=== PATIENT | male | born 1955 | race Caucasian/White ===

== ENCOUNTER 2019-05-24 08:46 | Outpatient (CLI) | payer BC, SELFPAY ==
[2019-05-24 08:56] LABS: Basophils Absolute Auto 0.03 K/mm3 (0.00-0.10); Basophils Percent Auto 0.7 % (0.0-1.0); Eosinophils Absolute Auto 0.11 K/mm3 (0.02-0.50); Eosinophils Percent Auto 2.6 % (1.0-6.0); Immature Granulocyte Absolute 0.04 K/mm3 (0.00-0.00); Lymphocytes Absolute Auto 1.31 K/mm3 (1.10-4.50); Lymphocytes Percent Auto 31.5 % (18.0-42.0); Mean Corpuscular HGB Conc 31.6 g/dL (32.0-36.0); Mean Corpuscular Hemoglobin 28.1 pg (27.0-31.0); Mean Platelet Volume 10.2 fl (8.7-11.0); Monocytes Absolute Auto 0.51 K/mm3 (0.10-0.90); Monocytes Percent Auto 12.3 % (2.0-11.0); Neutrophils Absolute Auto 2.2 K/mm3 (1.7-7.2); Neutrophils Percent Auto 51.9 % (50.0-70.0); Platelet Count Result 195 K/mm3 (150-420); Red Blood Count 4.27 M/mm3 (4.70-6.10); Red Cell Distribution Width 19.9 % (11.6-14.4); White Blood Count 4.2 K/mm3 (4.8-10.8)
[2019-05-24 09:55] LABS: Alanine Aminotransferase 17 U/L (16-63); Albumin Level 2.3 g/dL (3.4-5.0); Alkaline Phosphatase 304 U/L (46-116); Anion Gap 15.8 mmol/L (7-16); Aspartate Amino Transferase 37 U/L (15-37); Bilirubin,Total 0.6 mg/dL (0.00-1.00); Blood Urea Nitrogen 28 mg/dL (7-18); Calcium 8.3 mg/dL (8.5-10.1); Carbon Dioxide 23 mmol/L (21-32); Chloride 106 mmol/L (98-108); Estimated Glomerular Filt Rate 54; Glucose 91 mg/dL (70-99); Osmolality Calculated 295 mOsm/kg (285-295); Potassium 4.8 mmol/L (3.5-5.1); Sodium 140 mmol/L (136-145); Total Protein 6.1 g/dL (6.4-8.2)
== END 2019-05-24 08:47 | disposition home or self-care (01) ==
LOC: CHSLAB 08:49
PROVIDERS: PCP Family Medicine; Visit Provider Internal Medicine Hematology & Oncology
DX: C24.1 Malignant neoplasm of ampulla of Vater (principal)
CPT/HCPCS: 36415; 80053; 85025

== ENCOUNTER 2019-05-29 05:34 | Emergency (ER) | payer BC, SELFPAY ==
--- NOTE | ~2019-05-29 | CT_ITS ---
EXAMINATION: CTA chest PE abdomen pel DATE: 05/29/2019 08:24 CDT INDICATION: Metastatic pancreatic cancer TECHNIQUE: Computed tomographic angiography (CTA) of the chest was performed with 100 mL Omnipaque-35 0 intravenous contrast. The dose-length product was 746.76 mGy-cm. Maximum intensity projection 3D-re constructions of the aorta and other arteries were constructed by the technologist on a separate work station. Automated exposure control and iterative reconstruction technique were employed. COMPARISON: CT dated 05/10/2018 FINDINGS: Study is technically adequate without evidence for pulmonary embolism. Large right and mode rate left pleural effusions. Cardiomegaly. No significant pericardial effusion. There is dependent at electasis. There is a 2.2 cm right upper lobe mass. There is a 2.3 cm left suprahilar mass. There are small 3 mm) fissural nodules. There is a 6 mm right pleural-based mass of the lower lobe. There is a 4 mm right fissural nodule, image 74. There is an 8 mm pleural-based lingular nodule, image 70. Ther e are multiple low-density lesions in the thyroid gland, nonspecific. Recommend correlation with ultr asound on a nonemergent basis. There is a left chest wall port. There are multiple hypovascular lesions of the liver, compatible with metastases. There is ascites in the upper abdomen. The pancreas is not visualized. IMPRESSION: 1. No evidence for pulmonary embolism. 2: Multiple bilateral pulmonary nodules, largest in the upper lobes measuring up to 2.3 cm, compatib le with metastases. There are additional metastases to the liver. 3: Bilateral pleural effusions, right greater than left, and ascites. 4: Cardiomegaly. Reviewed, dictated and finalized at location A. IMPRESSION: 1. No evidence for pulmonary embolism. 2: Multiple bilateral pulmonary nodules, largest in the upper lobes measuring up to 2.3 cm, compatible with metastases. There are additional metastases to th e liver. 3: Bilateral pleural effusions, right greater than left, and ascites. 4: Cardiomegaly.
[2019-05-29 05:35] VITALS: BP 156/94; PULSE 95; RESP 20; TEMP 37.1; O2SAT 98
--- NOTE | 2019-05-29 06:18 | ED.WEAKNESS ---
HPI - Weakness General Chief complaint: Weakness Stated complaint: WEAKNESS Time Seen by Provider: 05/29/19 05:55 Source: patient Mode of arrival: EMS Limitations: clinical condition History of Present Illness HPI Narrative: Montrell is a 63-year-old male patient. He presents to the emergency room from home by ambulance. Montrell lives at home with his brother and mother. His main complaint upon admission his weakness and history of fall at around 5:00 a.m. today. He was going from his bed to the commode which was by the bedside. He felt weak and slid down to the floor. He was unable to get up. His the mother and brother also were unable to get him up. They called the ambulance and he is here with weakness mainly. As far as pain is concerned he just has minor pain to the low back. He is able to flex and extend both knees and both hips. There is no open wound anywhere. He rates the pain only at about 2/10. As noted above, his main complaint is weakness. Montrell has a diagnosis of pancreatic cancer. This diagnosis was 1st made in April 2018. He had a Whipple procedure done at [facility] in [facility] in May of 2018. Chemotherapy was started in July 2018. His main oncologist is Dr.Preet Elizalde. Montrell sees Dr. Elizalde in [place]. His last visit with Dr. Elizalde was last week. He gets the chemotherapy every 2 weeks, occasionally it is extended to 3 weeks, depending on his blood counts. he has also seen another oncologist at [facility]. This is Dr. Hi Elizalde and Dr. Do have conferred with each other. Montrell was diagnosed with liver and lymph node metastasis in November of 2018. His chemo regimen was changed since then. Montrell denies any abdominal pain. He denies any vomiting or diarrhea. His appetite has been fair to poor. Denies any urinary symptoms. No history of cough or fever. He has some swelling to the abdomen feet and lower legs . However he does not have any pain to these areas. Montrell denies any chest pain. He denies any shortness of breath at this time. There is no history of cough or fever. MD Complaint: generalized weakness Onset (ago): week(s) ( Past 1 week the weakness has gradually increased) Duration: constant Location: generalized Exacerbating factors: other ( see HPI narrative) Context: other ( see HPI narrative) Associated symptoms: other ( see HPI narrative) Related Data Home Medications Medication Instructions Recorded Confirmed diphenoxylate-atropine 1 tablet PO DIRECTED PRN 05/29/19 05/29/19 furosemide 40 mg PO DAILY 05/29/19 05/29/19 hydrocodone-acetaminophen 1 tablet PO Q6-8H PRN 05/29/19 05/29/19 morphine 15 mg PO BID 05/29/19 05/29/19 olanzapine 5 mg PO BID 05/29/19 05/29/19 ondansetron HCl 8 mg PO Q6-8H PRN 05/29/19 05/29/19 tramadol 50 mg PO Q4-6H 05/29/19 05/29/19 trazodone 50 mg PO DIRECTED PRN 05/29/19 05/29/19 Allergies Allergy/AdvReac Type Severity Reaction Status Date / Time No Known Allergies Allergy Verified 05/29/19 06:04 Review of Systems Review of Systems: All systems reviewed & are unremarkable except as noted in HPI and below Constitutional: Constitutional: Reports no additional constitutional complaints, Denies chills, Reports fatigue, Denies fever(s) and Reports weakness Eyes: Eyes: Reports as per HPI, Reports no additional eye complaints and Denies change in vision ENT: Reports system reviewed and no additional complaints, except as documented, Reports as per HPI, Denies dysphagia, Denies vertigo, Denies dizziness, Denies nasal congestion and Denies sore throat Cardiovascular: Cardiovascular: Reports as per HPI, Reports no additional cardiovascular complaints, Denies chest pain and Denies radiating jaw, neck or arm pain Respiratory: Respiratory: Reports as per HPI, Reports no additional respiratory complaints, Denies cough and Denies dyspnea Gastrointestinal: Gastrointestinal: Reports as per HPI, Denies abdominal
[2019-05-29 06:58] LABS: Eosinophils Absolute Auto 0.03 K/mm3 (0.02-0.50); Eosinophils Percent Auto 0.6 % (1.0-6.0); Hematocrit 34.9 % (40.0-54.0); Immature Granulocyte Absolute 0.04 K/mm3 (0.00-0.00); Immature Granulocyte Percent A 0.8 % (0.0-0.0); Lymphocytes Absolute Auto 0.65 K/mm3 (1.10-4.50); Lymphocytes Percent Auto 13.7 % (18.0-42.0); Mean Corpuscular HGB Conc 31.5 g/dL (32.0-36.0); Mean Corpuscular Hemoglobin 27.6 pg (27.0-31.0); Mean Corpuscular Volume 87.5 fL (78.0-102.0); Mean Platelet Volume 11.6 fl (8.7-11.0); Monocytes Percent Auto 2.1 % (2.0-11.0); Neutrophils Absolute Auto 3.9 K/mm3 (1.7-7.2); Neutrophils Percent Auto 82.8 % (50.0-70.0); Platelet Count Result 155 K/mm3 (150-420); Red Blood Count 3.99 M/mm3 (4.70-6.10); Red Cell Distribution Width 19.2 % (11.6-14.4); White Blood Count 4.7 K/mm3 (4.8-10.8)
[2019-05-29] MEDS: SODIUM CHLORIDE 0.9% IV 1,000 ML 999 ML IV CONT (06:58)
[2019-05-29 07:10] LABS: Add Urine Microscopic? NO; Appearance Urine Clear (Clear); Bilirubin Urine Negative (Negative); Blood Urine Negative (Negative); Color Urine Yellow (Yellow); Glucose Urine UA Negative (Negative); Ketones Urine Negative (Negative); Leukocyte Esterase Ur Negative LEU/UL (Negative); Nitrate Urine Negative (Negative); Protein Urine Negative (Negative); Specific Grav Ur 1.015 (1.010-1.020); Urobilinogen Urine 0.2 mg/dL (0.2-1.0)
[2019-05-29 07:15] LABS: BNP 105 pg/mL (0-100)
[2019-05-29 07:16] LABS: Alanine Aminotransferase 16 U/L (16-63); Albumin Level 2.1 g/dL (3.4-5.0); Alkaline Phosphatase 258 U/L (46-116); Aspartate Amino Transferase 37 U/L (15-37); Bilirubin,Total 0.6 mg/dL (0.00-1.00); Blood Urea Nitrogen 40 mg/dL (7-18); Calcium 8.4 mg/dL (8.5-10.1); Carbon Dioxide 26 mmol/L (21-32); Chloride 102 mmol/L (98-108); Estimated CRCL calculation 53 ml/min; Estimated Glomerular Filt Rate 57; Glucose 89 mg/dL (70-99); Osmolality Calculated 284 mOsm/kg (285-295); Sodium 133 mmol/L (136-145); Total Protein 5.9 g/dL (6.4-8.2)
[2019-05-29 07:23] LABS: D Dimer 3.61 mg/L (0.19-0.50)
--- NOTE | 2019-05-29 08:30 | PC.NURSE ---
erp in with pt discussing plan of care.
--- NOTE | 2019-05-29 08:58 | PC.NURSE ---
pt able to stand and ambulate 30 feet with pushing wheelchair. minimal assistance
[2019-05-29 08:59] VITALS: BP 146/92; PULSE 84; RESP 20; TEMP 36.9; O2SAT 98
--- NOTE | 2019-05-29 10:45 | PC.NURSE ---
discharge paperwork found in room. . call to pt for pickup.
== END 2019-05-29 09:01 | disposition home or self-care (01) ==
PROVIDERS: Emergency Provider Surgery; PCP Family Medicine
DX: C25.9 Malignant neoplasm of pancreas, unspecified (principal); C78.7 Secondary malignant neoplasm of liver and intrahepatic bile duct; R06.89 Other abnormalities of breathing
CPT/HCPCS: 36415; 71275; 74177; 80053; 81003; 83880; 85025; 85380; 96360; 99283; 99284; J7030; Q9965